=== PATIENT | female | born 1995 | race Caucasian/White ===

== ENCOUNTER → 2017-02-28 | Outpatient (CLI) | payer BC ==
[~2017-02-28] MED LIST: ONDA4TAB65 PO
--- NOTE | 2017-02-28 13:27 | DIAGNOSTIC IMAGING REPORT ---
RIGHT CLAVICLE 2 VIEWS CLINICAL HISTORY: Right clavicular injury. FINDINGS: 2 views of the right clavicle are obtained. No prior studies are available for comparison at the time of dictation. The skeletal structures are well mineralized. No right clavicular fracture is seen. The acromioclavicular and sternoclavicular joints appear maintained. The shoulder joint is grossly intact. The overlying soft tissues are within normal limits. Imaged right apical lung parenchyma appears clear. IMPRESSION: There is no radiographic evidence of right clavicular fracture. Electronically signed by: Pietro Fair M.D. 02/28/2017 1:26 PM Dictated Date/Time: 02/28/2017 1:25 PM
== END | disposition home or self-care (01) ==
LOC: C.RAD 12:44
PROVIDERS: ATTEND Physician Assistant Surgical
DX: S49.91XA Unspecified injury of right shoulder and upper arm, initial encounter (principal); X58.XXXA Exposure to other specified factors, initial encounter; M89.8X1 Other specified disorders of bone, shoulder